=== PATIENT | male | born 1965 | race Caucasian/White ===

== ENCOUNTER 2024-11-01 08:54 | Day surgery (SDC) | payer BC ==
[2024-10-27 15:51] VITALS: BMI 25.5
[~2024-11-01 08:54] MED LIST: LACTATED RINGERS 1,000 ML IV SCH
[2024-11-01] MEDS: IV FLUID CONTINUATION 1,000 ML IV ONE (09:09)
[2024-11-01 09:14] VITALS: TEMP 97.1
[2024-11-01] MEDS ORDERED: PROPOFOL 10 MG/ML 20 ML VIAL IV ONE (09:36)
[2024-11-01] MEDS ORDERED: LIDOCAINE 1% INJ 10MG/ML (20 ML MDV) ONE (09:36)
--- NOTE | 2024-11-01 10:02 | P.PCN ---
Date of Procedure: 11/01/24 Procedure(s) Performed: BRIEF HISTORY: Patient is a 59-year-old pleasant white male scheduled for an elective colonoscopy as a part of screening for colon cancer. PROCEDURE PERFORMED: Colonoscopy with biopsy. PREOPERATIVE DIAGNOSIS: Screening for colon cancer. IV sedation per Anesthesia. PROCEDURE: After informed consent was obtained, the patient, was brought into the endoscopy unit. IV sedation was administered by Anesthesia under continuous monitoring. Digital rectal examination was normal. Initially the Olympus CF-160 flexible video colonoscope was then inserted in the rectum, gradually advanced into the cecum without any difficulty. Careful examination was performed as the scope was gradually being withdrawn. Ileocecal valve and the appendiceal orifice were visualized and appeared normal. Prep was excellent. Mucosa of the cecum, normal. In the ascending colon there was a 3 mm polyp that was removed by cold biopsy. In the descending colon there was a 4 mm polyp removed by cold biopsy. Rest of the ascending colon, transverse colon, descending colon, sigmoid colon, and rectum appeared normal. Retroflexion was performed in the rectum and no lesions were seen. The patient tolerated the procedure well. IMPRESSION: 3 mm ascending colon polyp status post cold biopsy 4 millimeter descending colon polyp status post cold biopsy Rest of the colon appeared RECOMMENDATIONS: Findings of this examination were discussed with the patient as well as his family. He was advised to follow-up with the biopsy results. If the biopsy reveals adenoma he can have repeat colonoscopy in 5 years.
[2024-11-01 10:34] VITALS: BP 157/82; PULSE 60; RESP 20
== END 2024-11-01 10:56 | disposition home or self-care (01) ==
LOC: ORWHC2ENDO 08:54
PROVIDERS: ATTEND Internal Medicine Gastroenterology
DX: Z12.11 Encounter for screening for malignant neoplasm of colon (principal); D12.2 Benign neoplasm of ascending colon; D12.4 Benign neoplasm of descending colon
CPT/HCPCS: 45380; J2003; J2704; 88305